=== PATIENT | male | born 1960 | race Two or more races ===

== ENCOUNTER 2022-04-24 10:32 | Outpatient (CLI) | payer OTHER | END 2022-04-24 23:59 | disposition home or self-care (01) | LOC: LAB 10:32 | PROVIDERS: ATTEND Specialist | DX: Z01.812 Encounter for preprocedural laboratory examination (principal); Z20.822 Contact with and (suspected) exposure to COVID-19 | CPT/HCPCS: U0003; C9803 ==

== ENCOUNTER 2022-04-30 06:44 | Day surgery (SDC) | payer OTHER ==
[~2022-04-30 06:44] MED LIST: BUPIVACAINE 0.5 % PF 150 MG/30 ML VIAL ONE
[2022-04-30] MEDS ORDERED: FENTANYL PF 100MCG/2ML AMPUL ONE (07:30)
[2022-04-30] MEDS ORDERED: FAMOTIDINE/PF INJ 20 MG/2 ML VIAL IV ONE (07:31)
[2022-04-30] MEDS ORDERED: methylPREDNISolone ACETATE 80 MG/ML VIAL ONE (08:08)
== END 2022-04-30 09:59 | disposition home or self-care (01) ==
LOC: DS 06:44
PROVIDERS: ATTEND Specialist
DX: S83.231A Complex tear of medial meniscus, current injury, right knee, initial encounter (principal); S83.281A Other tear of lateral meniscus, current injury, right knee, initial encounter; X58.XXXA Exposure to other specified factors, initial encounter; Y93.89 Activity, other specified; Y92.89 Other specified places as the place of occurrence of the external cause; Y99.8 Other external cause status; M94.261 Chondromalacia, right knee; E66.3 Overweight
CPT/HCPCS: 29880; J0690; J3490 ×3; J1040; J2704; J3010; J2765; J2405; J7030; A6253; A4217